=== PATIENT | female | born 1995 | race Caucasian/White ===

== ENCOUNTER → 2020-05-23 | Outpatient (CLI) | payer OTHER ==
[~2020-05-23] MED LIST: ISOVUE-370 76% 100ML VIAL As Ordered ONE
--- NOTE | 2020-05-23 13:18 | REP ---
INDICATION: INFERTILITY, CONCERNS OF R TUBE PATENCY, HX OF ENDOMETRIOSIS. History of abnormal fallopian tube on visual intraoperative inspection during prior pelvic surgery. COMPARISON: None. TECHNIQUE: The endometrium is cannulated by the attending laboratory technician. Fluoroscopic guidance is provided during contrast injection and intermittent spot filming is acquired. 0.3 minutes of fluoroscopy time is utilized. FINDINGS: There is opacification of a normal shaped endometrial cavity. No filling defect or synechia is appreciated. The isthmic and ampullary segments of fallopian tubes opacify promptly and symmetrically. Bilateral tubal patency is documented. IMPRESSION: Normal hysterosalpingogram documenting bilateral tubal patency. <Electronically signed by Ramone Ferrer > 05/23/20 0838
== END ==
LOC: M RADPRO 11:57
DX: N80.9 Endometriosis, unspecified (principal); N97.9 Female infertility, unspecified
CPT/HCPCS: 58340; 74740; Q9967